=== PATIENT | female | born 1950 | race Caucasian/White ===

== ENCOUNTER 2023-05-30 10:54 | Emergency (ER) | payer MEDICARE, SELFPAY ==
--- NOTE | ~2023-05-30 | XR_ITS ---
EXAMINATION: XR elbow LT min 3V DATE: 05/30/2023 12:13 INDICATION: Left elbow injury TECHNIQUE: Anteroposterior, two oblique and lateral views of the left elbow were obtained. COMPARISON: None. FINDINGS: Diffuse osteopenia. There is 1.5 cm proximal distraction of a transverse intra-articular fracture ext ending across the olecranon. No other acute fractures identified. On one of the images there is a par tially visualized plate and screw fixation at the distal left radius. Joint spaces appear relatively preserved with large joint effusion which displaces the anterior and posterior fat pads. Prominent so ft tissue swelling about the elbow and extending distally along the dorsal aspect of the forearm. IMPRESSION: 1. 1.5 cm distraction of an intra-articular fracture extending across the olecranon. Reviewed, dictated and finalized at location A. IMPRESSION: 1. 1.5 cm distraction of an intra-articular fracture extending across the olecr anon.
[2023-05-30 11:20] VITALS: BP 139/60; PULSE 76; RESP 18; TEMP 36.6; O2SAT 98
[2023-05-30] MEDS: ACETAMINOPHEN 500 MG TABLET 1000 MG PO (13:24)
[2023-05-30 13:39] VITALS: BP 130/60; PULSE 70; RESP 18; O2SAT 98
--- NOTE | 2023-05-30 18:40 | ED.UPPEXIN ---
HPI - Extremity Injury (Upper) General Chief Complaint: Extremity Injury, Upper Stated Complaint: fall, left arm injury Time Seen by Provider: 05/30/23 11:46 History of Present Illness HPI narrative: Patient presents after she lost her balance and fell, landing on her left elbow, this happened 2 days ago and she finally came in today because she was having persistent pain and bruising and swelling that was traveling down her arm. No focal numbness or weakness other than her chronic arthritis pain. No injuries elsewhere, including no head trauma Related Data Allergies Allergy/AdvReac Type Severity Reaction Status Date / Time codeine AdvReac Nausea Verified 05/30/23 11:26 Sulfa (Sulfonamide AdvReac Nausea Verified 05/30/23 11:26 Antibiotics) Review of Systems Review of Systems: All systems reviewed & are unremarkable except as noted in HPI and below Exam Narrative: EXAMINATION OF ORGAN SYSTEMS/BODY AREAS: Constitutional: Vital signs per nursing GENERAL:[No acute distress, non-toxic appearing.] HEAD: Normal with no signs of head trauma. EYES: EOMI, conjunctiva normal ENT: Hearing grossly intact LUNGS: Nonlabored breathing. HEART: [Regular rate and rhythm] ABD: [Soft], [nontender to palpation] EXT: Able to flex/extend at elbow with pain, with tenderness to palpation to the left elbow, no tenderness at the hand or wrist SKIN: Extensive ecchymosis from left elbow down to wrist NEURO: [Alert and oriented x 3. Full/intact sensation ulnar distribution, able to make fist/flex/extend fingers.] Normal ulnar and radial pulses PSYCH: Normal affect Course Vital Signs Vital signs: Vital Signs Temperature 97.8 F 05/30/23 11:20 Pulse Rate 76 05/30/23 11:20 Respiratory Rate 18 05/30/23 11:20 Blood Pressure 139/60 05/30/23 11:20 Pulse Oximetry 98 05/30/23 11:20 Oxygen Delivery Room Air 05/30/23 11:20 Temperature 97.8 F 05/30/23 11:20 Pulse Rate 70 05/30/23 13:39 Respiratory Rate 18 05/30/23 13:39 Blood Pressure 130/60 05/30/23 13:39 Pulse Oximetry 98 05/30/23 13:39 Oxygen Delivery Room Air 05/30/23 11:20 Procedures Orthopedic Splinting/Casting Injury #1: Splinting/Casting Date: 05/30/23 Side: left Upper Extremity Injury Location: elbow Splint: customized in ED OCL: long arm Pre-Procedure Neuro Vascular Exam: normal Post-Procedure Neuro Vascular Exam: normal MDM - Extremity Injury (Upper) MDM Narrative Medical decision making narrative: 72-year-old female presents after fall with elbow injury, she is neurovascularly intact, x-ray reviewed by myself does unfortunately show elbow fracture, I did discuss this with Dr. [employer] conservation or heritage architect who recommended long-arm splint, and he did also arrange for clinic follow-up in the morning. Patient updated on diagnosis and plan, strict and precautions discussed. Discharge Plan Discharge Clinical Impression: Elbow fracture, left Patient Disposition: Home, Self-Care Condition: Stable Instructions: Antibiotic Form, Elbow Fracture (ED) Prescriptions: New hydrocodone-acetaminophen 5-325 mg tablet 1 tablet PO Q8H PRN (Reason: pain) Qty: 10 0RF Follow-up/Referrals: PHYSICIAN NOT ON STAFF,NONSTAFF [Primary Care Provider] - Rodrigo Amor MD [Physician] - 2 Days
== END 2023-05-30 13:40 | disposition home or self-care (01) ==
PROVIDERS: Emergency Provider Emergency Medicine
DX: S52.032A Displaced fracture of olecranon process with intraarticular extension of left ulna, initial encounter for closed fracture (principal); W18.39XA Other fall on same level, initial encounter
CPT/HCPCS: 29105; 73080; 99284; A4565; A9270

== ENCOUNTER 2023-06-03 16:48 | Emergency (ER) | payer MEDICARE, SELFPAY ==
[2023-06-03 16:51] VITALS: BP 167/70; PULSE 77; RESP 18; TEMP 37.3; O2SAT 100
--- NOTE | 2023-06-03 17:31 | ED.EXTPRO ---
HPI - Extremity Problem General Chief complaint: Extremity Problem,Nontraumatic Stated complaint: L HAND SWELLING IN CAST S/P ELBOW FX Time Seen by Provider: 06/03/23 17:31 Source: patient Mode of arrival: ambulatory Limitations: no limitations History of Present Illness HPI Narrative: patient is a very pleasant 72-year-old female with past medical history as noted below who presents to the emergency department today ambulatory with a steady gait for evaluation of concerns of significant discoloration and swelling to her left hand and fingers. Patient states that she injured her left elbow when she hit it on a door frame and was seen here and diagnosed with an elbow fracture. She was seen here and had a splint placed here. She states that she then followed up with Orthopedics and she is not scheduled for surgery until the . She states that she is concerned due to the significant amount discoloration to her hand and fingers. She states she is still able to move all her fingers. She denies numbness. She states she has been trying to keep it elevated. She denies taking any blood thinners. denies fever or chills. denies any new injury since having the splint on. Related Data Home Medications Medication Instructions Recorded Confirmed acetaminophen 650 mg 650 mg PO Q8H PRN Pain 05/31/23 05/31/23 tablet,extended release aspirin 81 mg tablet 81 mg PO DAILY 05/31/23 05/31/23 folic acid 1 mg tablet 1 mg PO DAILY 05/31/23 05/31/23 hydroxychloroquine 200 mg tablet 400 mg PO Q48H 05/31/23 05/31/23 methotrexate sodium 2.5 mg tablet 25 mg PO WEEKLY 05/31/23 05/31/23 Allergies Allergy/AdvReac Type Severity Reaction Status Date / Time codeine AdvReac Mild Nausea Verified 06/03/23 17:07 hydrocodone AdvReac Mild Nausea Verified 06/03/23 17:07 Sulfa (Sulfonamide AdvReac Mild Nausea Verified 06/03/23 17:07 Antibiotics) Review of Systems Review of Systems: CONSTITUTIONAL: Denies fever, chills, or sweats. CARDIOVASCULAR: Denies chest pain, palpitations, or edema. SKIN: large amount of dark bruising to left hand/fingers. Denies rash or itching. MUSCULOSKELETAL: swelling to the left hand/fingers. has splint on LUE. denies decreased ROM to fingers/hand. NEUROLOGIC: Denies headache, numbness, or weakness. denies decreased sensation to the LUE. All systems reviewed & are unremarkable except as noted in HPI and below PMFSH Past Medical History Medical History Arthritis Fracture of left olecranon process Surgical History Surgical History History of hand surgery right hand fx- surgically repaired left hand fusion Family History Family History Mother Stomach cancer Sibling Heart disease Edema Social History Social History Smoking packs per day: 0.5 Smoking cigarettes per day: 10.0 Years smoked: 25 Smoking pack-years: 12.50 Smoking status: Unknown if ever smoked Tobacco type: cigarettes Additional smoking assessment comments: currently smokes 5-6 cigarettes per day Alcohol intake: current Drinks per week: 2 Alcohol use details: occasionally Substance use type: does not use Lack of Transportation: No Lack of Food: Never True Current Housing: I Have Housing Concerned About Future Housing: No Difficulty Paying Gas/Electric Bills: No Difficulty Paying for Meds: No Currently Unemployed: No Education: High School Diploma/GED Difficulty w/ Childcare or Family Care: No Living arrangements: alone Occupation/Education: retired Spiritual care concerns: No Exam Narrative: GENERAL: Well-appearing, well-nourished, and in no acute distress. HEART: Regular rate. 2+ radial pulse bilaterally. ABDOMEN: Soft, nontender, nondistended, normal active bowel sounds. E
== END 2023-06-03 19:08 | disposition home or self-care (01) ==
PROVIDERS: Emergency Provider Nurse Practitioner; PCP Family Medicine
DX: S52.022D Displaced fracture of olecranon process without intraarticular extension of left ulna, subsequent encounter for closed fracture with routine healing (principal); S60.222D Contusion of left hand, subsequent encounter; M19.90 Unspecified osteoarthritis, unspecified site; F17.210 Nicotine dependence, cigarettes, uncomplicated; Z79.82 Long term (current) use of aspirin; W22.09XD Striking against other stationary object, subsequent encounter
CPT/HCPCS: 29105; 99282

== ENCOUNTER 2023-06-06 00:24 | Day surgery (SDC) | payer MEDICARE, SELFPAY ==
[2023-05-31 16:08] VITALS: BMI 18.0
--- NOTE | 2023-05-31 16:19 | PC.NURSE ---
Report to the Outpatient Waiting Room, entrance under the green pavilion located off [facility], at time _0800_ on date _[id number]_. Planned Procedure Time: _1000_. Time changes happen often and if your time is changed the preop area will call you the afternoon before. - You and your visitor will be asked to self-screen and do not enter if you have any COVID symptoms. - A mask is optional within the hospital at this time. Patients may have clear liquids (water, carbonated beverages, clear teas, apple juice) until 3 hours prior to surgery with a maximum of 20 ounces. - No food from midnight until time of surgery Take the following medications with a SIP of water the morning of surgery: __None DO NOT STOP ANY OF YOUR OTHER PRESCRIPTION MEDICATIONS PRIOR TO SURGERY ?EXCEPT THE FOLLOWING Medications to discontinue per physician ____Patient says is holding Methotrexate per Dr Amor's instructions. Date to take last dose Please no make-up, nail spanish, hairspray, perfume, deodorant, or body powder the day of surgery. No jewelry (including any body piercings) or valuables the day of surgery, leave them at home. Please take a shower or bath the night before, or the morning of, surgery with an antibacterial soap. Wear comfortable, loose fitting clothing. - Jewelry must be removed prior to entering the operating room. Rings and piercings that are not removed may be cut off. - The hospital will not accept responsibility for valuables. - Please leave all valuables, including medications, at home the day of surgery. If you are going home after surgery, a licensed regional refrigerated cdl truck driver must drive you home. - NO public transportation without another adult if you receive anesthesia. - We recommend that an adult stay with you for 24 hours following discharge. - We also recommend that you do not drive, make important decision, drink alcoholic beverages, or take any drugs that were not prescribed by your health care provider for at least 24 hours after your discharge time. Follow any additional instructions given to you from your surgeon. If you or anyone in your household have experienced Covid symptoms in the past week, please notify your surgeon or the nurse liaison at the phone number below for possible testing. Telephone instructions given to __Patient__and asked if any additional questions and then verbalized understanding. Patient advised to call surgeon office or pre surgery nurse liaison [phone] if any additional questions.
[2023-06-06] VITALS (15 sets, daily range): BP systolic 98–172; BP diastolic 60–85; PULSE 60–83; RESP 10–20; TEMP 36.4–37.2; O2SAT 95–100
--- NOTE | ~2023-06-06 | XR_ITS ---
XR surgery orthopedic Clinical information: ORIF left elbow fracture TECHNIQUE: Fluoroscopy used during ORIF left elbow fracture performed by [Rodrigo Amor MD] on 06/06/2023. 11 seconds of fluoroscopy time with 2 images captured. FINDINGS: Correlate with procedure note. Images demonstrate placement of sideplate and screws transf ixing the proximal ulna which is in anatomic alignment. IMPRESSION: Fluoroscopy used during ORIF left elbow fracture. Please refer to procedural report. Reviewed, dictated and finalized at location L. IMPRESSION: Fluoroscopy used during ORIF left elbow fracture. Please refer to p fabricio report.
[2023-06-06] MEDS: ACETAMINOPHEN 500 MG TABLET 1000 MG PO (08:34)
[2023-06-06] MEDS: LACTATED RINGERS 1,000 ML 30 ML IV CONT ×2 (08:40→12:00)
--- NOTE | 2023-06-06 08:55 | WPDHPUPDATE1 ---
History and Physical Update Update Date/Time: 06/06/23 08:55 History and Physical has been reviewed, including an updated exam of the patient. There are NO changes in the patient's condition. Risks, benefits, and alternatives have been discussed and questions answered. Patient agrees to proceed with procedure.
--- NOTE | 2023-06-06 09:04 | WPDANESEPPF ---
Anes - Initial Pre Proc Eval Procedure: Operation Date: 06/06/23 10:00 Proposed Procedures p Open Reduction Internal Fixation Left Elbow Olecranon - Rodrigo Amor MD Date/Time: 06/06/23 09:04 Surgeon: Rodrigo Amor MD Pre Op Diagnosis: Left Olecranon Fracture Patient Data Age: 72 Gender: F Height: 1.7 m Weight: 53.5 kg Last Vital Signs Temp 37.2 C 06/06/23 08:52 Pulse 83 06/06/23 08:52 Resp 16 06/06/23 08:52 BP 167/63 H 06/06/23 08:52 Pulse Ox 95 06/06/23 08:52 O2 Del Method Room Air 06/06/23 08:52 Allergies Allergy/AdvReac Type Severity Reaction Status Date / Time codeine AdvReac Mild Nausea Verified 06/06/23 08:26 hydrocodone AdvReac Mild Nausea Verified 06/06/23 08:26 Sulfa (Sulfonamide AdvReac Mild Nausea Verified 06/06/23 08:26 Antibiotics) Home Medications Medication Instructions Recorded Confirmed Type acetaminophen 650 mg 650 mg PO Q8H PRN Pain 05/31/23 06/06/23 History tablet,extended release aspirin 81 mg tablet 81 mg PO DAILY 05/31/23 06/06/23 History folic acid 1 mg tablet 1 mg PO DAILY 05/31/23 06/06/23 History hydroxychloroquine 200 mg tablet 400 mg PO Q48H 05/31/23 06/06/23 History methotrexate sodium 2.5 mg tablet 25 mg PO WEEKLY 05/31/23 06/06/23 History Patient hx anesthesia problems: none Family hx anesthesia problems: none Results Review: All pre-operative results and documents have been reviewed as part of the pre-operative evaluation. [facility] Past Medical History Medical History Arthritis Fracture of left olecranon process Surgical History Surgical History History of hand surgery right hand fx- surgically repaired left hand fusion Family History Family History Mother Stomach cancer Sibling Heart disease Edema Social History Social History Smoking packs per day: 0.5 Smoking cigarettes per day: 10.0 Years smoked: 25 Smoking pack-years: 12.50 Smoking status: Unknown if ever smoked Tobacco type: cigarettes Additional smoking assessment comments: currently smokes 5-6 cigarettes per day Alcohol intake: current Drinks per week: 2 Alcohol use details: occasionally Substance use type: does not use Lack of Transportation: No Lack of Food: Never True Current Housing: I Have Housing Concerned About Future Housing: No Difficulty Paying Gas/Electric Bills: No Difficulty Paying for Meds: No Currently Unemployed: No Education: High School Diploma/GED Difficulty w/ Childcare or Family Care: No Living arrangements: alone Occupation/Education: retired Spiritual care concerns: No Anes - Eval Final PreProcedure Day of Procedure 06/06/23 09:04 Patient weight: thin Heart: regular rate and rhythm Lungs: clear to auscultation Airway: Mallampati scale class II Neurological: alert and oriented Last oral intake: >/= 8 hours ASA classification: III Emergent: no Anesthetic plan: proceed Anesthesia type and monitoring: general ETT and standard monitoring Results Review: All pre-operative results and documents have been reviewed as part of the pre-operative evaluation. Informed Consent: The patient's anesthetic plan and its attendant risks and benefits were discussed with the patient/family/POA. Questions were solicited and answers provided to the satisfaction of the patient/family/POA.
[2023-06-06] MEDS: KETOROLAC 15 MG/ML VIAL (*BKC) IV PUSH (09:48)
[2023-06-06] MEDS: ceFAZolin 2 GM/D5W 50 ML 2 GM/50 ML BAG IVPB (09:50)
--- NOTE | 2023-06-06 11:44 | W.PM.PROC2 ---
Procedure Note - Detailed Date of Procedure 06/06/23 Pre-op Diagnosis Left Olecranon Fracture Post-op Diagnosis Same Procedure Performed ORIF left olecranon fracture Surgeon Rodrigo Amor MD Writer [employer] Anesthesia General Description of Procedure The patient was identified and proper site identified. She was taken the operating room and transferred to the OR table placed her supine take care to pad her torso extremities. After general anesthetic induction and intubation she was positioned in the right lateral decubitus position securing her were padded hip rest and taking care taken to pad and position her torso and extremities. A nonsterile tourniquet was placed high on the left arm. Left upper extremity was prepped and draped in usual sterile fashion. The extremity was exsanguinated and tourniquet inflated to 200 millimeters of mercury remaining up for 53 minutes. A longitudinal curvilinear incision was made over the olecranon. Subcutaneous tissue sharply dissected down to the fracture. Fracture site was identified cleared of debris and then held in a reduced position. This allowed for application of the locking proximal ulna plate from the [employer] set. It was applied under strict fluoroscopic visualization to ensure that the joint was not penetrated. Satisfied with the reduction and hardware placement, the wound was irrigated with sterile saline. Skin edges reapproximated with 3-0 Stratafix and then dago. Sterile dressing was applied. Tourniquet was released. A well-padded posterior splint was applied with the elbow in 90? flexion. The patient was returned to supine position, awakened, extubated and then transferred to a cart to be taken to recovery area in stable condition. There were no known intraoperative complications. Estimated blood loss 30 milliliters. She received perioperative antibiotics. Estimated Blood Loss 30 Tourniquet Time 53 Drains No Packing No Pathology None sent Complications No immediate complications Condition Stable Disposition PACU [facility] Billing Surgery - Charge Forward: Surgery Billing ([id number]; [id number])
[2023-06-06] MEDS: fentaNYL CITRATE INJ (*CRX) 100 MCG/2 ML VIAL 25 MCG IV PUSH ×8 (11:48→12:02)
[2023-06-06] MEDS: HYDROmorphone HCL INJ (*CRX) 1 MG/ML SYR 0.5 MG IV PUSH ×4 (12:05→12:20)
[2023-06-06] MEDS: ONDANSETRON INJ 4 MG/2 ML VIAL IV PUSH (13:34)
[2023-06-06] MEDS: diphenhydrAMINE HCl INJ 50 MG/ML VIAL 12.5 MG IV PUSH (15:12)
== END 2023-06-06 16:25 | disposition home or self-care (01) ==
PROVIDERS: PCP Family Medicine; Visit Provider Orthopaedic Surgery
PROC: (CPT 24685; principal; 2023-06-06 10:00)
DX: S52.022A Displaced fracture of olecranon process without intraarticular extension of left ulna, initial encounter for closed fracture (principal); Z87.891 Personal history of nicotine dependence; Z79.82 Long term (current) use of aspirin; I07.1 Rheumatic tricuspid insufficiency; Q21.12 Patent foramen ovale; W19.XXXA Unspecified fall, initial encounter
CPT/HCPCS: 24685; 99199; A4565; A9270; C1713; J0690; J1100; J1170; J1200; J1885; J2250; J2405; J2704; J3010; J7120

== ENCOUNTER 2023-10-12 10:56 | Outpatient (CLI) | payer MEDICARE, SELFPAY ==
--- NOTE | ~2023-10-12 | XR_ITS ---
Left Hand Technique: PA, oblique, and lateral views were obtained. Clinical History: Arthralgia Findings: No acute fracture or dislocation is seen. There is extensive chronic osseous lesions throug hout the carpal bones, with fixation plate extending from the distal radius to the third metacarpal. There is probable fusion across the carpal metacarpal joints as well as the radiocarpal joint. There is moderate to advanced osteoarthritis of the first CMC joint. There is moderate degenerative change of the first MCP joint. There is moderate degenerative change of the third DIP joint. Soft tissues ar e unremarkable. Impression: Extensive fusion from the radius through the carpus and carpal metacarpal joints, as detailed above. Additional degenerative changes, as above. Reviewed, dictated and finalized at location M. L ENGRAVER Impression: Extensive fusion from the radius through the carpus and carpal metacarpal joint s, as detailed above. Additional degenerative changes, as above.
--- NOTE | ~2023-10-12 | XR_ITS ---
Clinical Indication: Arthralgia PA and lateral views of the chest: Comparison: None Findings: Possible right basilar nipple shadow versus pulmonary nodule. The lungs are otherwise clear , without evidence of focal consolidation or pleural effusion. Suspected COPD and pulmonary artery hy pertension. Cardiomediastinal silhouette is within normal limits. Bones and soft tissues are unremark able. Impression: Suspected right basilar nipple shadow versus possibly pulmonary nodule. Consider repeat exam with nip ple markers or chest CT to confirm/exclude pulmonary nodule. Suspected COPD and pulmonary artery hypertension. Reviewed, dictated and finalized at location . SUPPORT SPECIALIST Impression: Suspected right basilar nipple shadow versus possibly pulmonary nodule. Conside r repeat exam with nipple markers or chest CT to confirm/exclude pulmonary nodu le. Suspected COPD and pulmonary artery hypertension.
--- NOTE | ~2023-10-12 | XR_ITS ---
EXAMINATION: XR hand RT min 3V DATE: 10/12/2023 11:40 INDICATION: Arthralgia. TECHNIQUE: 3 views of right hand were obtained. COMPARISON: None. FINDINGS: Bone alignment is normal. No acute fracture. There is dorsal plate and screw fixation of th ird metacarpal. There is severe osteoarthritis of distal radioulnar joint, radioscaphoid and radiolun ate joints, and most of the carpometacarpal joints and metacarpophalangeal joints. There is severe os teoarthritis of third proximal and distal interphalangeal joints and fourth proximal interphalangeal joint. There is mild osteoarthritis of some of the other interphalangeal joints. IMPRESSION: 1. Polyarticular osteoarthritis. Reviewed, dictated and finalized at location A. HICS SOFTWARE ENGINEER
--- NOTE | ~2023-10-12 | XR_ITS ---
Right foot Technique: AP, oblique, and lateral views were obtained. Clinical History: Arthralgia Findings: No acute fracture or dislocation is seen. Hallux valgus noted. Joint spaces are preserved w ithout erosive or degenerative change. Soft tissues are unremarkable. Impression: Hallux valgus. Reviewed, dictated and finalized at location . SPECIALIST Impression: Hallux valgus.
--- NOTE | ~2023-10-12 | XR_ITS ---
Left foot Technique: AP, oblique, and lateral views were obtained. Clinical History: Arthralgia Findings: No acute fracture or dislocation is seen. There is mild degenerative change of the first MT P joint. Soft tissues are unremarkable. Impression: Mild degenerative change of the first MTP joint. Reviewed, dictated and finalized at [facility]. ING SUPERINTENDENT Impression: Mild degenerative change of the first MTP joint.
== END 2023-10-12 10:57 ==
PROVIDERS: PCP Internal Medicine; Visit Provider Physician Assistant Medical
DX: M25.50 Pain in unspecified joint (principal); M54.2 Cervicalgia; Z79.899 Other long term (current) drug therapy; M20.11 Hallux valgus (acquired), right foot; R91.8 Other nonspecific abnormal finding of lung field
CPT/HCPCS: 71046; 73130; 73630

== ENCOUNTER 2023-11-06 11:37 | Outpatient (CLI) | payer MEDICARE, SELFPAY ==
--- NOTE | ~2023-11-06 | XR_ITS ---
EXAMINATION: XR chest 2V DATE: 11/06/2023 12:05 INDICATION: Indeterminate nipple shadow versus pulmonary nodule at the right lung base on prior chest radiograph TECHNIQUE: PA and lateral views of the chest were obtained with nipple markers. COMPARISON: Chest radiograph dated 10/12/2023 FINDINGS: The right nipple marker projects over the region of the previous noted nodular opacity which is nearl y indiscernible on the current radiograph. No other suspicious pulmonary nodules, airspace opacities, pulmonary edema, pleural effusion or pneumothorax. Cardiomegaly. Mild to moderate thoracic spondylos is with a chronic lower thoracic mild compression fracture, likely T9. IMPRESSION: 1. The nipple marker projects over the region of the nodular opacity on the prior radiographs which i s not appreciated on the current study. No suspicious pulmonary nodules or acute cardiopulmonary dise ase. 2. Cardiomegaly. Reviewed, dictated and finalized at location B. IMPRESSION: 1. The nipple marker projects over the region of the nodular opacity on the cathy or radiographs which is not appreciated on the current study. No suspicious pul monary nodules or acute cardiopulmonary disease. 2. Cardiomegaly.
== END 2023-11-06 11:38 ==
PROVIDERS: PCP Physician Assistant Medical; Visit Provider Physician Assistant Medical
DX: I51.7 Cardiomegaly (principal)
CPT/HCPCS: 71046

== ENCOUNTER 2024-03-08 14:42 | Outpatient (CLI) | payer MEDICARE, SELFPAY ==
--- NOTE | ~2024-03-08 | CT_ITS ---
EXAMINATION:CT diagnostic chest wo con DATE: 03/08/2024 15:01 INDICATION: Pulmonary nodule. TECHNIQUE: Computed tomography (CT) of the chest was performed without intravenous contrast. Automate d exposure control and iterative reconstruction technique were employed. The dose-length product (DLP ) was 67.40 mGy-cm. COMPARISON: Chest 2 view 11/06/2023 FINDINGS: There is mild scarring at the lung apices. There is mild atelectasis bilaterally. No pleura l effusion. Cardiomegaly is noted. No pericardial effusion. There is a multinodular goiter. The centr al pulmonary arteries are enlarged, consistent with pulmonary arterial hypertension. There is mild th oracic spondylosis. There is mild chronic height loss of multiple vertebral bodies. IMPRESSION: 1. Mild scarring at the lung apices. 2. Multinodular goiter. Consider thyroid ultrasound for risk stratification. Reviewed, dictated and finalized at location E.
== END 2024-03-08 14:43 | disposition home or self-care (01) ==
PROVIDERS: PCP Internal Medicine; Visit Provider Internal Medicine
DX: R91.1 Solitary pulmonary nodule (principal); E04.2 Nontoxic multinodular goiter; R91.8 Other nonspecific abnormal finding of lung field
CPT/HCPCS: 71250

== ENCOUNTER 2024-04-16 10:27 | Outpatient (CLI) | payer MEDICARE, SELFPAY ==
--- NOTE | ~2024-04-16 | US_ITS ---
EXAMINATION: US thyroid DATE: 04/16/2024 10:41 INDICATION: Multinodular goiter TECHNIQUE: Multiple ultrasound images of the thyroid were obtained. COMPARISON: None. FINDINGS: The right thyroid lobe measures 6.3 x 2.3 x 2.7 cm. The left thyroid lobe measures 5.9 x 2.5 x 2.7 c m. The thyroid isthmus measures 9 mm in thickness. 1.6 cm solid hypoechoic nodule with smooth margins and without echogenic foci. (TI-RADS 4, moderately suspicious , FNA if >=1.5 cm, annual followup is >=1 cm) in the inferior right thyroid lobe. 5 mm shadowing coarse calcification in the mid right thy roid There is heterogeneous echogenicity with coarsened echotexture and prominent diffuse increased v ascular flow on color Doppler throughout the thyroid consistent with thyroiditis. IMPRESSION: 1. Enlarged heterogeneous and hypervascular thyroid suggestive of thyroiditis. 2. 1.6 cm TI RADS 4 right thyroid nodule for which ultrasound-guided biopsy would be recommended. Reviewed, dictated and finalized at location A. IMPRESSION: 1. Enlarged heterogeneous and hypervascular thyroid suggestive of thyroiditis. 2. 1.6 cm TI RADS 4 right thyroid nodule for which ultrasound-guided biopsy wou ld be recommended.
== END 2024-04-16 10:28 ==
LOC: GOSHIMG 10:27
PROVIDERS: PCP Internal Medicine; Visit Provider Internal Medicine
DX: E04.2 Nontoxic multinodular goiter (principal)
CPT/HCPCS: 76536

== ENCOUNTER 2025-05-01 11:20 | Outpatient (CLI) | payer MEDICARE, SELFPAY ==
--- NOTE | ~2025-05-01 | US_ITS ---
Clinical history:Thyroid nodule. Follow-up EXAM:Ultrasound thyroid TECHNIQUE:Multiple static grayscale images and color Doppler images were obtained of the thyroid gland. Comparisons:Ultrasound thyroid 04/16/2024 FINDINGS: Thyroid gland is enlarged and heterogeneous. Right thyroid lobe measures 6.0 x 2.5 and 3.7 cm and is heterogeneous. Left thyroid lobe measures 4.8 x 2.7 x 2.6 cm and is heterogeneous. Isthmus measures 0.7 cm and is heterogeneous. There is a 1.4 x 1.4 0.3 cm hypoechoic nodule in the right inferior thyroid lobe. The finding previously measured 1.6 x 1.3 x 1.4 cm on 04/16/2024. There is a 5 x 5 x 3 mm calcification in the right thyroid lobe. There is a 1.2 x 1.0 x 0.9 cm hypoechoic nodule in the isthmus. Increased vascular flow throughout the thyroid gland. IMPRESSION: 1. Thyroid gland is enlarged and heterogeneous with prominent vascular flow. Consider thyroiditis. 2.There is a 1.4 x 1.4 0.3 cm hypoechoic nodule in the right inferior thyroid lobe. The finding previously measured 1.6 x 1.3 x 1.4 cm on 04/16/2024. Correlate clinically. Reviewed, dictated and finalized at location Q. IMPRESSION: 1. Thyroid gland is enlarged and heterogeneous with prominent vascular flow. Co nsider thyroiditis. 2.There is a 1.4 x 1.4 0.3 cm hypoechoic nodule in the right inferior thyroid l obe. The finding previously measured 1.6 x 1.3 x 1.4 cm on 04/16/2024. Correlate clinically.
== END 2025-05-01 11:21 | disposition home or self-care (01) ==
LOC: GOSHIMG 11:20
PROVIDERS: PCP Internal Medicine; Visit Provider Internal Medicine
DX: R94.6 Abnormal results of thyroid function studies (principal); E04.1 Nontoxic single thyroid nodule
CPT/HCPCS: 76536

== ENCOUNTER 2025-06-03 09:54 | Outpatient (CLI) | payer MEDICARE, SELFPAY ==
--- NOTE | ~2025-06-03 | DEXA_ITS ---
Bone Density Report Name: VEL ALVES Age: 74 Sex: Female Ethnicity: White Date of : 1950 Indication: postmenopausal; screening for osteoporosis; height loss; prior fracture; rheumatoid arthritis; Referring Provider: Bry, Veronica Study: Bone densitometry was performed. Exam Date: June 03, 2025 Accession number: [id number] Bone Density: Region BMD T-score Z-score Classification AP Spine(L1, L2, L3) 0.773 -2.2 0.2 Osteopenia Femoral Neck (Left) 0.623 -2.0 0.1 Osteopenia Total Hip (Left) 0.542 -3.3 -1.4 Osteoporosis Femoral Neck (Right) 0.520 -3.0 -0.8 Osteoporosis Total Hip (Right) 0.509 -3.5 -1.7 Osteoporosis Total Hip Mean 0.526 -3.4 -1.6 Osteoporosis World Health Organization criteria for BMD impression classify patients as: Normal (T-score at or above -1.0), Osteopenia (T-score between -1.0 and -2.5), or Osteoporosis (T-score at or below -2.5). 10-year Fracture Risk: FRAX not reported because: Some T-score for Spine Total or Hip Total or Femoral Neck at or below -2.5 Clinical Information Provided by Patient: Has had a low trauma fracture Smokes Has rheumatoid arthritis Has used the following medications: Vitamin D, Calcium Patient maximum height was 67 Menopause Age: 43 No regular weight bearing exercise Drinks caffeinated beverages Onset of menses at age 12 Number of children 2 Impression: The patient has established osteoporosis, based on the Right Total Hip T-score and the existence of a prior fracture. The patient has risk factors, including: smoking, previous fracture. Discussion: HIGH RISK OF FRACTURE. BONE DENSITY IS UNDESIRABLY LOW AT ONE OR MORE SKELETAL SITES, CONSISTENT WITH POSTMENOPAUSAL OSTEOPOROSIS. This patient's lowest T-score, in a patient who has previously fractured, meets the World Health Organization's (WHO) criteria for severe osteoporosis. In untreated patients, the risk of osteoporotic fracture increases approximately two-fold for each 1.0 SD decrease in T-score. Low bone density is not the only risk factor for fracture; also consider factors such as patient's age, frailty or poor health, risk of falling, risk of injury, previous osteoporotic fracture, family history of osteoporosis, cigarette smoking, low body weight, etc. Not everyone with low bone mineral density has osteoporosis; osteomalacia and other metabolic bone disorders should also be considered. Patients who have osteoporosis should be evaluated for specific diseases and conditions (secondary causes) that may cause or contribute to bone loss. The [place] [employer] (AACE) and National Osteoporosis Foundation (NOF) recommend pharmacologic intervention for all postmenopausal women whose T-score is in this range. The patient should follow a healthful lifestyle (good nutrition with adequate calcium and vitamin D, and appropriate weight-bearing exercise). Follow-Up: Consider a repeat BMD and Vertebral Fracture Assessment (VFA) exam in 2 years or sooner if medically necessary, to reassess this patient's status. Reported by: HERMILA on 06/03/2025 10:15:00 AM. Reviewed, dictated and finalized at location A.
== END 2025-06-03 09:55 | disposition home or self-care (01) ==
LOC: MICIMG 09:54
PROVIDERS: PCP Internal Medicine; Visit Provider Internal Medicine
DX: Z78.0 Asymptomatic menopausal state (principal); M85.88 Other specified disorders of bone density and structure, other site; M85.852 Other specified disorders of bone density and structure, left thigh; M81.0 Age-related osteoporosis without current pathological fracture
CPT/HCPCS: 77080